=== PATIENT | male | born 1970 | race Caucasian/White ===

== ENCOUNTER → 2024-08-14 07:57 | Outpatient (REF) | payer BC, SELFPAY | LOC: RAD 07:57 | DX: M25.572 Pain in left ankle and joints of left foot (principal) | CPT/HCPCS: 76882 ==

== ENCOUNTER → 2024-11-04 09:58 | Outpatient (REF) | payer BC, SELFPAY ==
--- NOTE | 2024-09-24 16:40 | PN.DIAED02 ---
Referral
DSME Class Series Code: [id number]
Referred For: Diabetes Self-Management Training, Self-Blood Glucose Monitoring, Long-Term Complication Instruction, Continuous Glucose Monitoring, Care Coordination, Disease Management
PHI Release Authorization Form Signed: Yes
Demographic
(1) Type 2 diabetes mellitus without complications
Status: Acute Code(s): E11.9 - Type 2 diabetes mellitus without complications
Patient's primary language-: Italian
Education: Advanced college degree
Occupation: Professional
Hours Worked/Week: > 40
- Social
Primary Support Person: Self
Primary Care Takers: Self
Living Arrangements: Self & spouse
- Learning Methods
Preferred Method: Lecture/audio, Hands-on demonstration
Barriers to Learning: None
Glycemic Control
- Blood Glucose Monitoring Assessment
Date: 08/01/24
Blood glucose monitoring at home: Yes
Monitor Brands: Accu-Chek
Frequency: 2x per day
Time: fasting, before dinner
Patient uses Alternate Site Testing: No
Patient instructed on Use and Limitation: No
- Hemoglobin A1c
Date: 08/01/24
A1C Percentage (%): 6.5
Medical History of Diabetes
Family Diabetes History: Mother, Grandmother
Previous Diabetes Education: No
Previous visit with Dietitian: No
Complications/Comorbidity/Specialist: Hyperlipidemia
Measures
- Anthropometrics
Height: 5 ft 11 in
Actual Weight: 102.965 kg
- Blood Pressure / Pulse
Blood pressure: 130/89
Pulse: 68
- Diabetes Management
Medical Management for Diabetes: Complete physical exam (08/13/2024), Dental exam (05/24/2024), Dilated eye exam (11/23/2023), Foot exam (08/13/2024)
Self-Care
- Tobacco Usage
Do you now, or have you ever smoked?: Never smoked
Smoking Cessation Referral and/or Information provided: No
- Alcohol & Drugs Usage
Drinks Alcohol: Yes
Amount/day: Social Occasions
Uses Recreational Drugs: No
- Meals & Dining
Meals & Dining: Patient skips meals: Yes, Food Intolerance / Allergy: No, Cultural / Zoroastrianism Dietary Needs: No
Primary Food Mine Superintendent: Self
Primary Logistics Associate: Self
Dining Out Frequency: 1-3x per week
- Physical Activity
Physical Limitation: No
Patient participates in physical Activity: Yes
Activity Types: Aerobics, Combination
Duration: > 50 minutes
Frequency: 3-5x per week
Intensity: Moderate
- Self Foot-Care
Foot Problems: None
- Patient-Self Assessment
Diabetes Knowledge: Fair
Feelings About Diabetes: Sadness / Depression
General Health: Good
Importance of Health: Extremely
Stress Level: Medium
Diabetes Interferes With:: Other (life expectancy)
Barriers to Diabetes Management: Nothing
Depression Survey Score: 2
- Diabetes Identification
Carries Diabetes Identification: No
Diabetes Identification Information Provided: No
Care Plan
- Education Needs
Patient Education Needs: Diabetes disease process, Chronic complications, Acute complications, Monitoring, Physical activity, Psychosocial Adjustment, Nutritional management, Goal setting & problem solving
Recommended Diabetes Training Program based on assessment: Outpatient Diabetes Education Program
- Plan of Care
Plan of Care:
Met with Mr. Goldberg today for registration and initiation of Diabetes Self-management. Pt was recommended by his PCP due to New Onset T2DM, A1C of 6.8% that was noted on recent blood work. He has not been started on any medications and is hoping to
make lifestyle changes as initial form of modality for management of diabetes. He has a working meter at home and has been monitoring his sugars twice a day, fasting and before dinner.
Pt states that he was exercising 3-4x/week but stopped due to ACL injury but is now ready to get back to gym since he was cleared for exercise. He was counseled with emphasis on need to adhere to an intensive lifestyle modification that includes
healthy eating, exercising and monitoring blood glucose twice a day. We spent a good amount of time discussing dietary choices, carbohydrate counting and importance of Physical activity. Goals for physical activity were established; Pt will resume
his regular exercises at [facility] 4x/week fr 1 hour.
--- NOTE | 2024-09-25 15:25 | PN.DIAED04 ---
Education Record
- Education Record
Class Attended: Other (Pre-Registration for DSME Classes)
DSME Class Series Code: [id number]
Instructor: Nurse Practitioner (GEORGIANA Paniagua)
Pre-Program Knowledge: Needs review / Assistance
Pre-Test Score (%): 73
Goals
- Goal 1
Being Active: Exercise more often
Goals To Be Evaluated: Exercise more often
- Goal 2
Healthy Eating: Follow meal plan
Goals To Be Evaluated: Follow meal plan
- Goal 3
Monitoring: Follow monitoring schedule
Goals To Be Evaluated: Follow monitoring times
--- NOTE | 2024-11-05 15:34 | PN.DIAED14 ---
This is to notify you that your patient with diabetes, SHARLENE GUEVARA ( 1970), has enrolled in our diabetes self-management classes that are being held at [facility].
These classes will include an introduction to diabetes, diet, medication, exercise and prevention of complications. At the end of our class series, you will receive a report of your patient's participation and progress for your records.
Please contact me at the Diabetes Center, , if there is any particular information regarding your patient that might be helpful to me.
Sincerely,
Carl STONER-GABBY,[facility]
--- NOTE | 2024-11-05 15:34 | PN.DIAED04 ---
Addendum entered and electronically signed by Marissa Cutler 11/06/24 12:02:
Outpatient Diabetes Education Program:
Class 1 (120 minutes)
Describe the diabetes disease process and treatment options
Diabetes management
Develop personal strategies to promote health and behavior change
Integrate psychosocial adjustment for daily living
Monitor blood glucose and other parameters. Interpret and use the results for self-management decision making
Prevent, detect, and treat acute complications
Original Note:
Education Record
- Education Record
Class Attended: Class 1
DSME Class Series Code: [id number]
Instructor: Nurse Practitioner (GEORGIANA Paniagua)
Class Length (mins): 120
Post-Class 1 Test Score (%): 100
--- NOTE | 2024-11-07 17:57 | PN.DIAED06 ---
Meal Plans - Regular
- Meal Plan
Diabetic Meal Plan Name: 2000 calories
Breakfast - Total Carbohydrate (grams): 45
Breakfast - Starch Carbohydrate: 0
Breakfast - Fruit Carbohydrate: 0
Breakfast - Milk Carbohydrate: 0
Breakfast - Nonstarchy Vegetables: Yes
Breakfast - Meat/Protein: 1
Breakfast - Fat: 2
Morning Snack - Total Carbohydrate (grams): 30
Morning Snack - Starch Carbohydrate: 0
Morning Snack - Fruit Carbohydrate: 0
Morning Snack - Milk Carbohydrate: 0
Morning Snack - Nonstarchy Vegetables: Yes
Morning Snack - Meat/Protein: 0.5
Morning Snack - Fat: 0
Lunch - Total Carbohydrate (grams): 45
Lunch - Starch Carbohydrate: 0
Lunch - Fruit Carbohydrate: 0
Lunch - Milk Carbohydrate: 0
Lunch - Nonstarchy Vegetables: Yes
Lunch - Meat/Protein: 3
Lunch - Fat: 1
Afternoon Snack - Total Carbohydrate (grams): 30
Afternoon Snack - Starch Carbohydrate: 0
Afternoon Snack - Fruit Carbohydrate: 0
Afternoon Snack - Milk Carbohydrate: 0
Afternoon Snack - Nonstarchy Vegetables: Yes
Afternoon Snack - Meat/Protein: 0.5
Afternoon Snack - Fat: 0
Dinner - Total Carbohydrate (grams): 45
Dinner - Starch Carbohydrate: 0
Dinner - Fruit Carbohydrate: 0
Dinner - Milk Carbohydrate: 0
Dinner - Nonstarchy Vegetables: Yes
Dinner - Meat/Protein: 4
Dinner - Fat: 2
Evening Snack - Total Carbohydrate (grams): 15
Evening Snack - Starch Carbohydrate: 0
Evening Snack - Fruit Carbohydrate: 0
Evening Snack - Milk Carbohydrate: 0
Evening Snack - Nonstarchy Vegetables: Yes
Evening Snack - Meat/Protein: 0
Evening Snack - Fat: 0
== END ==
LOC: DES 09:58
DX: E11.9 Type 2 diabetes mellitus without complications (principal)
CPT/HCPCS: 99078

== ENCOUNTER → 2024-11-11 14:01 | Outpatient (REF) | payer BC, SELFPAY | LOC: DES 14:01 | DX: E11.9 Type 2 diabetes mellitus without complications (principal) | CPT/HCPCS: 99078 ==

== ENCOUNTER → 2024-11-18 11:23 | Outpatient (REF) | payer BC, SELFPAY | LOC: DES 11:23 | DX: E11.9 Type 2 diabetes mellitus without complications (principal) | CPT/HCPCS: 99078 ==

== ENCOUNTER → 2024-11-25 08:40 | Outpatient (REF) | payer BC, SELFPAY ==
--- NOTE | 2024-11-26 10:39 | PN.DIAED04 ---
Education Record
- Education Record
Class Attended: Class 4
DSME Class Series Code: [id number]
Instructor: Nurse Practitioner (GEORGIANA Paniagua)
Class Curriculum:
Outpatient Diabetes Education Program:
Class 4 (120 minutes)
Develop personal strategies to promote health and behavior change
Incorporate physical activity into lifestyle
Utilize medications safety for maximum therapeutic effectiveness
Understand different medication/insulin mechanism of action
Preparing for travel
Class Length (mins): 120
Post-Class 4 Test Score (%): 100
== END ==
LOC: DES 08:40
DX: E11.9 Type 2 diabetes mellitus without complications (principal)
CPT/HCPCS: 99078

== ENCOUNTER → 2024-12-02 13:20 | Outpatient (REF) | payer BC, SELFPAY ==
--- NOTE | 2024-12-04 12:13 | PN.DIAED16 ---
This is to notify you that your patient with diabetes, SHARLENE GUEVARA ( 1970), has attended the entire series of Diabetes Self-Management Education Classes.
Class 1 (120 minutes): Diabetes Overview - monitoring, stress/psychosocial adjustment, support, goal setting
Class 2 (120 minutes): Meal Planning - serving sizes, menu plans
Class 3 (120 minutes): Introduction to Carbohydrate Counting, Analyzing Food Labels
Class 4 (120 minutes): Medication, Exercise and Activity
Class 5 (120 minutes): Sick Day Management, Strategies to Reduce Complications, Problem Solving, Resources
The following behavioral goals were identified:
Exercise more often
Follow meal plan
Follow monitoring times
A follow-up call will be made within three to six months to evaluate attainment of these goals and to check post-program Hemoglobin A1c and overall progress. All class participants are encouraged to contact me if I can be any further assistance in
learning how to manage their diabetes.
Sincerely,
Carl STONER-GABBY, [facility]
== END ==
LOC: DES 13:20
DX: E11.9 Type 2 diabetes mellitus without complications (principal)
CPT/HCPCS: 99078